=== PATIENT | male | born 1980 | race Caucasian/White ===

== ENCOUNTER 2022-02-19 10:05 | Emergency (ER) | payer OTHER, SELFPAY ==
[2022-02-19 10:38] VITALS: BP 127/94; PULSE 77; RESP 18; TEMP 36.4; O2SAT 100
--- NOTE | 2022-02-19 10:54 | ED.URI ---
HPI - URI/Sore Throat General Chief Complaint: Upper Respiratory Infection Stated Complaint: lt side face discomfort Time Seen by Provider: 02/19/22 10:54 Source: patient and RN notes reviewed Mode of arrival: ambulatory Limitations: no limitations History of Present Illness HPI Narrative: 41-year-old male presents to express care with stated complaints of sinus pressure and pain to the left side of his face from his eye to his teeth starting yesterday. Patient has palpable tenderness to the left side of his face and also some mild swelling noted. Patient reports that he has history of sinus infections. Patient denies any known fevers, chills or sweats, has taken Tylenol cold and sinus and also used Goody BC pain powder. Patient reports that he has had Covid vaccination and Booster MD elicited complaint: rhinorrhea, nasal congestion and sinus pain Pertinent past history: sinusitis Treatments prior to arrival: other (Advil cold and sinus, Goody BC pain powder) Related Data Allergies Allergy/AdvReac Type Severity Reaction Status Date / Time No Known Allergies Allergy Verified 02/19/22 10:44 Review of Systems Review of Systems: CONSTITUTIONAL: Denies fever, chills, or sweats. EYES: Denies visual changes, redness, or discharge. ENT: Positive for rhinorrhea, congestion,no sore throat, or otalgia.positive for left sided facial pressure from eye to mouth with palpable tenderness CARDIOVASCULAR: Denies chest pain, palpitations, or edema. RESPIRATORY: Dry cough denies dyspnea. GASTROINTESTINAL: Denies abdominal pain, nausea, vomiting, or diarrhea. GENITOURINARY: Denies dysuria or hematuria. SKIN: Denies rash or itching. MUSCULOSKELETAL: Denies back pain, joint pain, or myalgia. NEUROLOGIC: Denies headache, numbness, or weakness. PSYCHIATRIC: Denies anxiety or depression. [facility] Past Medical History Medical History (Updated 02/19/22 @ 17:25 by Jane Pedraza NP) Sinusitis Surgical History Surgical History (Updated 02/19/22 @ 10:55 by Jane Pedraza NP) Hx of appendectomy Social History Social History (Updated 02/19/22 @ 10:55 by Jane Pedraza NP) Smoking status: Current every day smoker Tobacco type: e-cigarettes/vaping Living arrangements: with family Gender identity (if verbalized by the patient): Male Comments At time of signature, agree with nursing past medical, surgical, social and family history. There is no relevant family history pertinent to the presenting complaint Exam Narrative: GENERAL: Well-appearing, well-nourished, and in no acute distress. HEAD: Normocephalic, atraumatic. EYES: PERRLA and EOMI. ENT: Nares red with turbinates red and swollen, facial pressure on left side and palpable tenderness, clear rhinorrhea no epistaxis. Mucous membranes moist.TM's normal with dull light reflex, throat red with no lesions or exudates or tonsil swelling, pos nasal drainage present. NECK: Supple.no lymphadenopathy CHEST: Clear to auscultation. No respiratory distress.SAO2 100% on room air, dry cough, no tachypnea HEART: Regular rate and rhythm. No murmur heard. Normal peripheral pulses. ABDOMEN: Soft, nontender, nondistended, normal active bowel sounds. EXTREMITIES: Normal range of motion. No edema. SKIN: Warm, dry, no rash. NEURO: No focal deficits. Alert and oriented x3. Course Course Level of Care: Express Care Visit Vital Signs Vital signs: Vital Signs Temperature 36.4 C 02/19/22 10:38 Pulse Rate 77 02/19/22 10:38 Respiratory Rate 18 02/19/22 10:38 Blood Pressure 127/94 H 02/19/22 10:38 Pulse Oximetry 100 02/19/22 10:38 Oxygen Delivery Room Air 02/19/22 10:38 Temperature 36.4 C 02/19/22 10:38 Pulse Rate 77 02/19/22 10:38 Respiratory Rate 18 02/19/22 10:38 Blood Pressure 127/94 H 02/19/22 10:38 Pulse Oximetry 100 02/19/22 10:38 Oxygen Delivery Room Air 02/19/22 10:38 MDM - URI/Sore Throat Differential Diagnosis Differential diagnosis: L
== END 2022-02-19 11:11 | disposition home or self-care (01) ==
PROVIDERS: Emergency Provider Registered Nurse
DX: J01.90 Acute sinusitis, unspecified (principal); F17.290 Nicotine dependence, other tobacco product, uncomplicated
CPT/HCPCS: 99203; G0463